=== PATIENT | male | born 1955 | race Hispanic/Latino ===

== ENCOUNTER 2020-09-28 06:57 | Day surgery (SDC) | payer OTHER ==
[2020-09-22 12:41] LABS: HEMATOCRIT 44.1 % (42-54); MEAN CORPUSCULAR HEMOGLOBIN 30.3 pg (27.0-33.0); MEAN CORPUSCULAR HGB CONC 33.8 g/dL (32.0-36.0); MEAN CORPUSCULAR VOLUME 89.8 fL (79-99); PLATELET COUNT (AUTO) 231 K/uL (130-400); RED BLOOD CELL COUNT(AUTO) 4.91 MIL/uL (4.50-6.20); RED CELL DISTRIBUTION WIDTH 12.2 % (11.0-15.5)
[2020-09-22 12:45] LABS: APPEARANCE,URINE Clear (CLEAR); BILIRUBIN,URINE Negative (NEGATIVE); COLOR,URINE Yellow (YELLOW); GLUCOSE, URINE (UA) Negative (NEGATIVE); KETONES,URINE Negative (NEGATIVE); LEUKOCYTE ESTERASE ,URINE Trace (NEGATIVE); NITRATE,URINE Negative (NEGATIVE); OCCULT BLOOD,URINE Negative (NEGATIVE); PH,URINE 5.5 (5.0-8.0); PROTEIN,URINE Negative (NEGATIVE)
[2020-09-22 12:53] LABS: POTASSIUM 4.2 mmol/L (3.5-5.1)
[2020-09-22 12:55] LABS: PROTHROMBIN TIME 10.9 SEC (9.6-11.6)
[2020-09-22 12:56] LABS: PARTIAL THROMBOPLASTIN TIME 24.5 SEC (26.3-35.5)
[2020-09-22 13:12] LABS: BACTERIA,URINE Rare /HPF (None Seen); MUCUS,URINE Few LPF (None Seen); RBC,URINE 0-1 /HPF (0-1); SQUAMOUS EPITHELIAL CELL,UR Rare /HPF (0-2); WBC,URINE 0-1 /HPF (0-1)
[2020-09-22 13:40] LABS: BASOPHILS % (MANUAL) 1 % (0-2); EOSINOPHILS % (MANUAL) 5 % (1-6); LYMPHOCYTES % (MANUAL) 30 % (22-44); MAN.DIFF COMMENT-IMPRESSION MANUAL DIFFERENTIAL; MONOCYTES % (MANUAL) 4 % (2-9); PLATELET MORPHOLOGY COMMENT ADEQUATE; SEGMENTED NEUTROPHILS % 60 % (40-70)
[2020-09-27 10:42] VITALS: BP 140/68
[2020-09-28] VITALS (11 sets, daily range): BP systolic 99–128; BP diastolic 44–61
[~2020-09-28] VITALS: Ht 175.3 cm; Wt 93.4 kg
[~2020-09-28 06:57] MED LIST: ASPI-1443 PO; ATOR20TA65 PO; METO-391 PO
[2020-09-28] MEDS ORDERED: 0.9%NACL 1000ML 1,000 ML IV ONE (07:46)
[2020-09-28] MEDS ORDERED: 0.9%NACL 1000ML 1,000 ML IV SCH ×2 (08:00→11:00)
[2020-09-28] MEDS ORDERED: HEPARIN 10,000 UNIT/10ML (1,000 UNIT/ML) VIAL ONE (08:20)
[2020-09-28] MEDS ORDERED: NICARDIPINE 25MG INJ IV ONE (08:20)
[2020-09-28] MEDS ORDERED: LIDOCAINE HCL 400MG/20ML VIAL ONE (08:21)
[2020-09-28] MEDS ORDERED: IOHEXOL 350 MG/ML 100ML INFUS..BTL IV ONE (08:21)
[2020-09-28] MEDS ORDERED: NITROGLYCERIN 2 MG VIAL IV ONE (08:21)
[2020-09-28] MEDS ORDERED: MIDAZOLAM HCL 1 MG/ML 2ML VIAL ONE (08:21)
[2020-09-28] MEDS ORDERED: IOHEXOL-350 50ML VIAL IV ONE (08:21)
[2020-09-28] MEDS ORDERED: FENTANYL CITRATE PF 50 MCG/1 ML 2ML VIAL ONE (08:21)
== END 2020-09-28 15:05 | disposition home or self-care (01) ==
LOC: DAH 06:57
PROVIDERS: ATTEND Internal Medicine
DX: I25.10 Atherosclerotic heart disease of native coronary artery without angina pectoris (principal); E78.5 Hyperlipidemia, unspecified; Z79.01 Long term (current) use of anticoagulants; Z79.82 Long term (current) use of aspirin; Z79.899 Other long term (current) drug therapy
CPT/HCPCS: 36415; 71045; 80048; 81001; 85025; 85610; 85730; 93005; 93458; A4215; A4216; A4221; A4222; A4223 ×3; A4606; A4663; C1769; C1887; C1894 ×3; J1644 ×2; J2250; J3010; J3490 ×3; J7030; Q9965; Q9967; 99156; 99157

== ENCOUNTER 2020-10-24 14:26 | Emergency (ER) | payer MEDICARE, OTHER ==
[~2020-10-24] VITALS: Ht 175.3 cm; Wt 92.1 kg
[~2020-10-24 14:26] MED LIST changes: -ATOR20TA65 PO; -METO-391 PO
[2020-10-24 14:28] VITALS: BP 145/84
[2020-10-24 17:55] VITALS: BP 136/77
[2020-10-24] MEDS ORDERED: IPRATROPIUM/ALBUTEROL SULFATE 3 ML SOLUTION IH ONE (19:00)
[2020-10-24 19:08] LABS: BASOPHILS % (AUTO) 0.3 % (0.0-5.0); EOSINOPHILS % (AUTO) 2.9 % (0.0-8.0); HEMATOCRIT 43.4 % (42-54); LYMPHOCYTES % (AUTO) 31.9 % (21.0-51.0); MEAN CORPUSCULAR HGB CONC 33.4 g/dL (32.0-36.0); MEAN CORPUSCULAR VOLUME 89.9 fL (79-99); MONOCYTES % (AUTO) 13.2 % (3.0-13.0); NEUTROPHILS % (AUTO) 51.2 % (40.0-77.0); PLATELET COUNT (AUTO) 176 K/uL (130-400); RED BLOOD CELL COUNT(AUTO) 4.83 MIL/uL (4.50-6.20); RED CELL DISTRIBUTION WIDTH 11.9 % (11.0-15.5); WHITE BLOOD COUNT (AUTO) 3.8 K/uL (4.8-10.8)
[2020-10-24 19:26] VITALS: BP 146/74
[2020-10-24 19:27] LABS: CARBON DIOXIDE 25 mmol/L (21-32); CHLORIDE 106 mmol/L (101-111); CREATININE 0.9 mg/dL (0.5-1.5); GLOMERULAR FILTR. RATE CALC 90 mL/min (>60); GLUCOSE,RANDOM 102 mg/dL (70-105); POTASSIUM 3.6 mmol/L (3.5-5.1); SODIUM SERUM 140 mmol/L (136-145); UREA NITROGEN, BLOOD 15 mg/dL (7-18)
[2020-10-24 19:35] LABS: B-TYPE NATRIURETIC PEPTIDE 19 pg/mL (0-100)
[2020-10-24 19:37] LABS: ALANINE AMINOTRANSFERASE 34 U/L (12-78); ALBUMIN 3.5 g/dL (3.5-5.0); ASPARTATE AMINOTRANSFERASE 19 U/L (10-37); BILIRUBIN,TOTAL 0.5 mg/dL (0.2-1.0); CREATINE KINASE, TOTAL 87 U/L (21-232); MYOGLOBIN 44 ng/mL (10-92); TOTAL PROTEIN, SERUM 7.3 g/dL (6.0-8.3); TROPONIN I < 0.04 ng/mL (0.00-0.06)
[2020-10-24] MEDS ORDERED: MONT10TA21 PO (23:53)
[2020-10-24] MEDS ORDERED: [UNRECOGNIZED DRUG - CODE] PO (23:53)
[2020-10-24] MEDS ORDERED: IPRA4AER IH (23:53)
[2020-10-24] MEDS ORDERED: AZIT500T2 PO (23:53)
[2020-10-25] VITALS: BP 142/72
== END 2020-10-25 00:15 | disposition home or self-care (01) ==
LOC: EDH 14:26
DX: U07.1 COVID-19 (principal); F41.9 Anxiety disorder, unspecified; I25.10 Atherosclerotic heart disease of native coronary artery without angina pectoris; Z95.1 Presence of aortocoronary bypass graft
CPT/HCPCS: 36415; 71046; 80053; 82550; 83874; 83880; 84484; 85025; 87635; 93005; 94640; 99285; C9803

== ENCOUNTER 2022-08-24 03:30 | Emergency (ER) | payer MEDICARE, OTHER ==
[~2022-08-24] VITALS: Ht 175.3 cm; Wt 93.0 kg
[~2022-08-24 03:30] MED LIST changes: +AZIT500T2 PO; +IPRA4AER IH; +MONT-46 PO; +[UNRECOGNIZED DRUG - CODE] PO
[2022-08-24] MEDS ORDERED: DiphenhydrAMINE HCL 50 MG/ML VIAL ONE (03:45)
[2022-08-24] MEDS ORDERED: FAMOTIDINE 20MG VIAL IV ONE ×2 (03:46→04:00)
[2022-08-24] MEDS ORDERED: SOLU-MEDROL 125MG VIAL IVP ONE (04:00)
[2022-08-24] MEDS ORDERED: DiphenhydrAMINE HCL 50 MG/ML VIAL IV ONE (04:00)
[2022-08-24] MEDS ORDERED: DIPH-1242 PO (06:11)
[2022-08-24] MEDS ORDERED: PRED20TA3 PO (06:11)
[2022-08-24 06:23] VITALS: BP 132/60
== END 2022-08-24 06:30 | disposition home or self-care (01) ==
LOC: EDH 03:30
DX: T63.441A Toxic effect of venom of bees, accidental (unintentional), initial encounter (principal); R60.0 Localized edema; Z79.52 Long term (current) use of systemic steroids; Z79.82 Long term (current) use of aspirin; Z79.899 Other long term (current) drug therapy; Z95.5 Presence of coronary angioplasty implant and graft; X58.XXXA Exposure to other specified factors, initial encounter
CPT/HCPCS: 99284; 96374; 96375; J1200; J3490

== ENCOUNTER 2023-09-07 14:32 | Emergency (ER) | payer OTHER ==
[~2023-09-07] VITALS: Ht 175.3 cm; Wt 89.8 kg
[~2023-09-07 14:32] MED LIST changes: +DIPH-1242 PO; +DOXY100C61 PO; +HYDR-4060 PO; +ONDA-243 PO; +PRED20TA3 PO
[2023-09-07 15:02] LABS: HEMATOCRIT 39.4 % (42-54); MEAN CORPUSCULAR HEMOGLOBIN 30.2 pg (27.0-33.0); MEAN CORPUSCULAR VOLUME 88.9 fL (79-99); PLATELET COUNT (AUTO) 279 K/uL (130-400); RED BLOOD CELL COUNT(AUTO) 4.43 MIL/uL (4.50-6.20); WHITE BLOOD COUNT (AUTO) 8.8 K/uL (4.8-10.8)
[2023-09-07 15:14] LABS: POTASSIUM 4.4 mmol/L (3.5-5.1)
[2023-09-07 15:15] LABS: INR <= 0.93 (0.85-1.15); PROTHROMBIN TIME 10.6 SEC (9.6-11.6)
[2023-09-07 15:16] LABS: PARTIAL THROMBOPLASTIN TIME 23.9 SEC (26.3-35.5)
[2023-09-07] MEDS ORDERED: IOHEXOL 350 MG/ML 100ML INFUS..BTL IV ONE (15:18)
[2023-09-07 15:21] LABS: BASOPHILS # (AUTO) 0.07 K/uL (0.00-0.20); BASOPHILS % (AUTO) 0.8 % (0.0-5.0); EOSINOPHILS # (AUTO) 0.29 K/uL (0.00-0.70); EOSINOPHILS % (AUTO) 3.2 % (0.0-8.0); IMMATURE GRANULOCYTE ABSOLUTE 0.04 K/uL (0-1); LYMPHOCYTES # (AUTO) 1.7 K/uL (1.0-4.8); LYMPHOCYTES % (AUTO) 18.6 % (21.0-51.0); MONOCYTES # (AUTO) 0.5 K/uL (0.1-1.0); NEUTROPHILS # (AUTO) 6.4 K/uL (1.8-7.7)
[2023-09-07 16:13] VITALS: BP 147/72; PULSE 79; RESP 20; O2SAT 99
[2023-09-07] MEDS: MORPHINE 2 MG SYG IVP ONE (18:08)
[2023-09-07] MEDS: ONDANSETRON 4MG INJ IVP ONE (18:08)
[2023-09-07] MEDS: TETANUS/DIPHTHERIA TOXOID [ADULT] 0.5 ML VIAL IM ONE (18:10)
== END 2023-09-07 18:23 | disposition short-term general hospital (02) ==
LOC: EDH 14:32
DX: S01.01XA Laceration without foreign body of scalp, initial encounter (principal); I62.9 Nontraumatic intracranial hemorrhage, unspecified; Z79.82 Long term (current) use of aspirin; Z79.899 Other long term (current) drug therapy; Z98.890 Other specified postprocedural states; W18.39XA Other fall on same level, initial encounter; Y93.89 Activity, other specified; Y92.89 Other specified places as the place of occurrence of the external cause; Y99.8 Other external cause status
CPT/HCPCS: 99285; 70450; 96374; 96375; 80048; 85025; 85610; 85730; 36415; 90714; 72125; 71260; 74177; 90471; J2270; J2405; Q9967